=== PATIENT | male | born 1945 | race Two or more races ===

== ENCOUNTER 2021-05-05 17:34 | Inpatient (IN) | payer MEDICARE, OTHER ==
[~2021-05-05] VITALS: Ht 180.3 cm; Wt 81.6 kg
--- NOTE | 2021-05-05 17:45 | NUR ---
LAB AT BEDSIDE
--- NOTE | 2021-05-05 17:45 | NUR ---
COVID TEST COLLECTED AND TAKEN BY LAB
--- NOTE | 2021-05-05 18:11 | NUR ---
X RAY AT BEDSIDE
[2021-05-05 18:16] LABS: BASOPHILS % (AUTO) 0.5 % (0.0-2.0); EOSINOPHILS % (AUTO) 4.3 % (0.0-6.0); HEMATOCRIT 34 % (39-51); HEMOGLOBIN 10.5 g/dL (13.5-17.5); LYMPHOCYTES % (AUTO) 20.8 % (20.0-44.0); MEAN CORPUSCULAR HGB CONC 31 g/dl (31.0-36.0); MEAN CORPUSCULAR VOLUME 94 fL (80-96); MONOCYTES # (AUTO) 0.4 K/uL (0.1-1.30); MONOCYTES % (AUTO) 8.3 % (2.0-12.0); NEUTROPHILS # (AUTO) 3.1 K/uL (1.8-8.9); NEUTROPHILS % (AUTO) 66.1 % (43.0-81.0); PLATELET COUNT (AUTO) 257 K/uL (150-450); RED BLOOD CELL COUNT(AUTO) 3.58 MIL/uL (4.5-6.0); WHITE BLOOD COUNT (AUTO) 4.7 K/uL (4.3-11.0)
[2021-05-05 18:38] LABS: CARBON DIOXIDE 20 mmol/L (21-32); CHLORIDE 110 mmol/L (98-107); CREATININE 2.5 mg/dL (0.6-1.3); GLUCOSE 88 mg/dL (74-106); SODIUM SERUM 138 mmol/L (136-145); UREA NITROGEN, BLOOD 55 mg/dL (7-18)
--- NOTE | 2021-05-05 18:39 | NUR ---
CALLED DR. GROSS [phone] PAGED.
[2021-05-05 18:49] LABS: ALANINE AMINOTRANSFERASE 18 U/L (12-78); ALBUMIN 3.7 g/dL (3.4-5.0); ALKALINE PHOSPHATASE 68 U/L (46-116); ASPARTATE AMINOTRANSFERASE 16 U/L (15-37); BILIRUBIN,TOTAL 0.1 mg/dL (0.2-1.0); TOTAL PROTEIN, SERUM 7.8 g/dL (6.4-8.2)
--- NOTE | 2021-05-05 18:50 | NUR ---
MOVE SHEET SUBMITTED.
--- NOTE | 2021-05-05 19:03 | NUR ---
CALLED DR. BECKER EMILY
[2021-05-05] MEDS ORDERED: SODIUM POLYSTYRENE SULFONATE 15 G/60 ML BOTTLE ONE (19:17)
[2021-05-05] MEDS ORDERED: FUROSEMIDE 20 MG/2 ML VIAL ONE (19:17)
[2021-05-05] MEDS ORDERED: DEXTROSE 50%-WATER 50 ML DISP.SYRIN ONE (19:19)
[2021-05-05] MEDS ORDERED: SODIUM BICARBONATE SYR 50 MEQ/50 ML DISP.SYRIN ONE (19:19)
[2021-05-05] MEDS ORDERED: INSULIN REGULAR, HUMAN 100 UNIT/ML 10 ML VIAL IV ONE (19:30)
[2021-05-05] MEDS ORDERED: ALBUTEROL FS 2.5 MG/3 ML VIAL.NEB NEB ONE (19:30)
[2021-05-05] MEDS ORDERED: DEXTROSE 50%-WATER 50 ML DISP.SYRIN IV ONE (19:30)
[2021-05-05] MEDS ORDERED: FUROSEMIDE 40 MG/4 ML VIAL IV ONE (19:30)
[2021-05-05] MEDS ORDERED: SODIUM BICARBONATE SYR 50 MEQ/50 ML DISP.SYRIN IV ONE (19:30)
[2021-05-05] MEDS ORDERED: SODIUM POLYSTYRENE SULFONATE 15 G/60 ML BOTTLE PO ONE (19:30)
--- NOTE | 2021-05-05 19:38 | NUR ---
CALLED [facility] [phone] DR. SOTO SUTTON.
--- NOTE | 2021-05-05 19:48 | NUR ---
PAGED DR GROSS
[2021-05-05] MEDS ORDERED: ALBUTEROL FS 2.5 MG/3 ML VIAL.NEB ONE (20:12)
--- NOTE | 2021-05-05 20:23 | NUR ---
MRSA SWAB COLLECTED AND SENT TO LAB. PATIENT'S BELONGINGS LIST DONE.
--- NOTE | 2021-05-05 21:18 | NUR ---
REPORT GIVEN TO CHELSEY ALSTON FOR TRACY
--- NOTE | 2021-05-05 21:21 | NUR ---
AVELINO PICC NURSE WAS AT THE BEDSIDE FOR MIDLINE INSERTION. LEDON 18G. OK FOR USE PER CHELSEY YOU
--- NOTE | 2021-05-05 21:44 | NUR ---
2144 ADMITTED FROM ER 75 YEAR OLD MALE VIA GURNEY WITH DIAGNOSIS OF ACUTE RENAL FAILURE. PATIENT IS AWAKE ALERT AND ORIENTED X 4. NO C/O SOB OR ANY DISCOMFORT WHEN ASKED. VITAL SIGNS CHECKED ACCORDINGLY. O2 SATURATION 100% ON ROOM AIR. 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 SINUS JOSE CRUZ IN THE 50S. ADMISSION CARE RENDERED. SKIN ASSESSMENT DONE. ABLE TO AMBULATE TO BATHROOM WITH ASSIST. CALL LIGHT PLACED WITHIN REACH AND INSTRUCTED TO CALL FOR ASSISTANCE. PLACED ON ISOLATION PRECAUTION FOR COVID.
[2021-05-05 21:50] VITALS: BP 155/79
--- NOTE | 2021-05-05 21:52 | NUR ---
TRANSFERRED TO 102 UNDER ACLS
--- NOTE | 2021-05-05 22:00 | NUR ---
RN NOTE PT BROUGHT TO [facility] VIA GURNEY FROM ER. PT IS ON ROOM AIR SHOWING NO S/S OF RESP DISTRESS/SOB. BREATHING EVEN AND UNLABORED. PT IS A/OX4. ON TELE MONITOR SHOWING NSR. SKIN INTACT. PT IS ABLE TO AMBULATE. IV ACCESS NOTED ON LEFT WRIST #20 AND MIDLINE ON RIGHT. LINES FLUSHED, PATENT, AND INTACT WITH NO SIGNS OF INFILTRATION. ALL SAFETY MEASURES IMPLEMENTED. CALL LIGHT WITHIN REACH. BED ALARM ON. BED LOCKED AND IN LOWEST POSITION. WILL CONTINUE TO MONITOR AND ASSESS FOR ANY CHANGES DURING SHIFT.
--- NOTE | 2021-05-05 22:20 | NUR ---
[address]20 ADMISSION ORDERS OBTAINED FROM DR GROSS VIA TELEPHONE. ORDERS NOTED.
[2021-05-05] MEDS ORDERED: CLONIDINE HCL 0.1 MG TABLET PO PRN (22:30)
[2021-05-05] MEDS ORDERED: ACETAMINOPHEN 650 MG/20.3 ML UDC PO PRN (22:30)
[2021-05-05] MEDS ORDERED: ONDANSETRON HCL/PF 4 MG/2 ML VIAL IV PRN (22:30)
[2021-05-05] MEDS ORDERED: IV NS 0.9% 1,000 ML IV ONE (22:30)
[2021-05-05 23:05] LABS: DIGOXIN 0.95 ng/mL (0.90-2.00)
[2021-05-06] VITALS: BP 132/69
[2021-05-06 04:00] VITALS: BP 122/61
[2021-05-06 06:22] LABS: BASOPHILS % (AUTO) 0.2 % (0.0-2.0); EOSINOPHILS % (AUTO) 3.4 % (0.0-6.0); HEMATOCRIT 28 % (39-51); HEMOGLOBIN 9.3 g/dL (13.5-17.5); LYMPHOCYTES % (AUTO) 18.3 % (20.0-44.0); MEAN CORPUSCULAR HGB CONC 34 g/dl (31.0-36.0); MEAN CORPUSCULAR VOLUME 91 fL (80-96); MONOCYTES # (AUTO) 0.5 K/uL (0.1-1.30); NEUTROPHILS # (AUTO) 3.7 K/uL (1.8-8.9); NEUTROPHILS % (AUTO) 69.1 % (43.0-81.0); PLATELET COUNT (AUTO) 208 K/uL (150-450); RED BLOOD CELL COUNT(AUTO) 3.04 MIL/uL (4.5-6.0); WHITE BLOOD COUNT (AUTO) 5.3 K/uL (4.3-11.0)
[2021-05-06 06:59] LABS: CALCIUM, SERUM 8.4 mg/dL (8.5-10.1); CARBON DIOXIDE 22 mmol/L (21-32); CHLORIDE 110 mmol/L (98-107); CREATININE 2.3 mg/dL (0.6-1.3); GLUCOSE 82 mg/dL (74-106); POTASSIUM 4.9 mmol/L (3.5-5.1); SODIUM SERUM 141 mmol/L (136-145); UREA NITROGEN, BLOOD 46 mg/dL (7-18)
--- NOTE | 2021-05-06 07:07 | NUR ---
RN NOTE NO CHANGES IN PT CONDITION DURING SHIFT. PT IS ON ROOM AIR SHOWING NO S/S OF RESP DISTRESS/SOB. BREATHING EVEN AND UNLABORED. PT IS A/OX4. ON TELE MONITOR SHOWING NSR. SKIN INTACT. IV ACCESS NOTED ON LEFT WRIST #20 AND MIDLINE ON RIGHT. LINES FLUSHED, PATENT, AND INTACT WITH NO SIGNS OF INFILTRATION. ALL DUE MEDS GIVEN ORDERED. PT KEPT CLEAN AND COMFORTABLE. ALL SAFETY MEASURES IMPLEMENTED. CALL LIGHT WITHIN REACH. BED ALARM ON. BED LOCKED AND IN LOWEST POSITION. WILL ENDORSE TO MORNING SHIFT RN FOR TRACY.
--- NOTE | 2021-05-06 07:14 | NUR ---
RN NURSE NOTE RECEIVE REPORT FROM OUT GOING NURSE. PATIENT IN STABLE CONDITION. ON ROOM AIR AND O2 SAT 98%. A/O X4. WILL FOLLOW UP WITH AM LABS. ALL SAFETY MEASURE IN PLACE BE ON LOWEST POSITION WITH HOB ELEVATED AND 3 SIDE RAIL UP. CALL LIGHT WITHIN REACH. WILL CONTINUE TO MONITOR.
[2021-05-06 08:00] VITALS: BP 125/70
[2021-05-06] MEDS: PANTOPRAZOLE 40 MG TABLET.DR PO SCH (08:03)
[2021-05-06] MEDS ORDERED: FURO20TA4 PO (08:37)
[2021-05-06] MEDS ORDERED: APIX2.5T PO (08:37)
[2021-05-06] MEDS ORDERED: DIGO125T PO (08:37)
[2021-05-06] MEDS ORDERED: PANT40TA49 PO (08:37)
[2021-05-06] MEDS ORDERED: GABA-532 PO (08:37)
[2021-05-06] MEDS ORDERED: LOSA50TA39 PO (08:37)
[2021-05-06] MEDS ORDERED: METO50TA16 PO (08:37)
[2021-05-06] MEDS ORDERED: ENOXAPARIN SODIUM 30 MG/0.3 ML DISP.SYRIN SQ SCH (09:00)
[2021-05-06 12:00] VITALS: BP 125/70
[2021-05-06 16:00] VITALS: BP 125/78
[2021-05-06] MEDS: METOPROLOL TARTRATE 50 MG TABLET PO SCH (16:41)
[2021-05-06] MEDS: APIXABAN 2.5 MG TABLET PO SCH (16:42)
--- NOTE | 2021-05-06 18:54 | NUR ---
RN CLOSING NOTE PATIENT REMAIN IN STABLE CONDITION THROUGH OUT SHIFT. LABS IS WNL. PATIENT AMBULATE, A/O X4. SKIN INTACT. CT OF CHEST WAS DONE. ALL SAFETY MEASURE IN PLACE. BED ON LOWEST POSITION WITH HOB ELEVATED AND 3 SIDE RAIL UP. CALL LIGHT WITHIN REACH. WILL CONTINUE TO MONITOR AND GIVE REPORT TO ON COMING NURSE.
--- NOTE | 2021-05-06 19:20 | NUR ---
RN NOTE RECEIVED PT AWAKE IN BED, WATCHING TV. A/OX4, ABLE TO VERBALIZE NEEDS. DENIES ANY PAIN AT THIS TIME. RESPIRATIONS EVEN/UNLABORED. ON ROOM AIR. NO COUGH/CONGESTION NOTED AT THIS TIME. IV SITE: L-WRIST AND ELDON MIDLINE INTACT/PATENT, FLUSHES WELL. PT IN NO ACUTE DISTRESS. WILL CONT TO MONITOR.
[2021-05-06 20:00] VITALS: BP 120/70
--- NOTE | 2021-05-07 06:50 | NUR ---
RN NOTE PT RESTING IN BED, EASILY AROUSABLE TO STIMULI. A/OX4. DENIES PAIN/DISCOMFORT. DENIES SOB. AMBULATES TO BR INDEPENDENTLY WITH STEADY GAIT. NO ACUTE EVENTS DURING THE NIGHT. SAFETY MEASURES MAINTAINED. ALL NEEDS ATTENDED TO.
[2021-05-07 07:56] LABS: BASOPHILS % (AUTO) 0.5 % (0.0-2.0); HEMATOCRIT 30 % (39-51); HEMOGLOBIN 9.6 g/dL (13.5-17.5); LYMPHOCYTES # (AUTO) 1.1 K/uL (0.8-4.8); LYMPHOCYTES % (AUTO) 22.5 % (20.0-44.0); MEAN CORPUSCULAR HGB CONC 32 g/dl (31.0-36.0); MEAN CORPUSCULAR VOLUME 91 fL (80-96); MONOCYTES # (AUTO) 0.5 K/uL (0.1-1.30); MONOCYTES % (AUTO) 11.2 % (2.0-12.0); NEUTROPHILS % (AUTO) 62.8 % (43.0-81.0); PLATELET COUNT (AUTO) 209 K/uL (150-450); RED BLOOD CELL COUNT(AUTO) 3.25 MIL/uL (4.5-6.0); WHITE BLOOD COUNT (AUTO) 4.7 K/uL (4.3-11.0)
[2021-05-07 08:00] VITALS: BP 115/67
--- NOTE | 2021-05-07 08:13 | NUR ---
RN NOTES REPORT RECEIVED FROM LUIS BARBOSA AT BEDSIDE AT 07:30. PT SOUND ASLEEP WHEN RECEIVED BUT AROUSABLE. NO SOB. BREATHING UNLABORED. NO PAIN OR NEEDS AT PRESENT.
[2021-05-07] MEDS: APIXABAN 2.5 MG TABLET PO SCH (08:36)
[2021-05-07] MEDS: PANTOPRAZOLE 40 MG TABLET.DR PO SCH (08:36)
[2021-05-07] MEDS: METOPROLOL TARTRATE 50 MG TABLET PO SCH (08:37)
[2021-05-07 08:57] LABS: CALCIUM, SERUM 8.5 mg/dL (8.5-10.1); CARBON DIOXIDE 24 mmol/L (21-32); CHLORIDE 109 mmol/L (98-107); GLUCOSE 90 mg/dL (74-106); MAGNESIUM 1.8 mg/dL (1.8-2.4); POTASSIUM 4.6 mmol/L (3.5-5.1); SODIUM SERUM 141 mmol/L (136-145); UREA NITROGEN, BLOOD 39 mg/dL (7-18)
[2021-05-07] MEDS ORDERED: GABAPENTIN 100 MG CAPSULE PO SCH (09:00)
[2021-05-07] MEDS ORDERED: PANTOPRAZOLE 40 MG TABLET.DR PO SCH (09:00)
[2021-05-07] MEDS ORDERED: LOSARTAN POTASSIUM 50 MG TABLET PO SCH (09:00)
[2021-05-07 16:00] VITALS: BP 127/70
--- NOTE | 2021-05-07 16:07 | NUR ---
notified re; PCr results shows inderterminate, notified to re; results and ok to discharge today. patient stated that vaccinated x3 including booster shot
== END 2021-05-07 17:02 | DRG 683 ==
LOC: ER 17:44 → TELE1 20:56 → MEDSG1 05-06 17:45
PROVIDERS: ADMIT Legal Medicine; ATTEND Legal Medicine
DX: N17.0 Acute kidney failure with tubular necrosis (principal); I50.32 Chronic diastolic (congestive) heart failure; I48.20 Chronic atrial fibrillation, unspecified; I13.0 Hypertensive heart and chronic kidney disease with heart failure and stage 1 through stage 4 chronic kidney disease, or unspecified chronic kidney disease; E87.5 Hyperkalemia; I11.0 Hypertensive heart disease with heart failure; E78.5 Hyperlipidemia, unspecified; N18.30 Chronic kidney disease, stage 3 unspecified; K21.9 Gastro-esophageal reflux disease without esophagitis; Z86.11 Personal history of tuberculosis; D64.9 Anemia, unspecified; Z20.822 Contact with and (suspected) exposure to COVID-19; Z86.16 Personal history of COVID-19
CPT/HCPCS: 36415; 71045-TC; 71250-TC; 76770-TC; 80048-TC; 80053-TC; 80162-TC; 83735-TC; 83970; 84484-TC; 85025-TC; 87081-TC; 97116-TC; 97530-TC; C9803; G0378; J1650; J1940; J3490; J7030; U0003

== ENCOUNTER 2021-08-31 12:06 | Emergency (ER) | payer MEDICARE, OTHER ==
[~2021-08-31] VITALS: Ht 167.6 cm; Wt 83.9 kg
[~2021-08-31 12:06] MED LIST: APIX2.5T PO; DIGO125T PO; FURO20TA4 PO; GABA-532 PO; LOSA50TA39 PO; METO50TA16 PO; PANT40TA49 PO
--- NOTE | 2021-08-31 12:23 | NUR ---
MANOLO BLACK From [facility] "Left Knee Pain" Denies injury/Trauma, unable to bear weights x 6 days. presently the pain is at scale of 1/10. Placed comfortably in bed. Vitals checked.
--- NOTE | 2021-08-31 12:25 | NUR ---
Seen by Dr Brewster at bedside
[2021-08-31] MEDS ORDERED: HYDR-4182 TP (12:26)
[2021-08-31] MEDS ORDERED: FLUT16SP (12:26)
[2021-08-31] MEDS ORDERED: ACET-2605 PO (12:26)
[2021-08-31] MEDS ORDERED: KETO15CR2 TP (12:26)
--- NOTE | 2021-08-31 13:13 | NUR ---
XRAY DONE ON KNEE
--- NOTE | 2021-08-31 14:15 | NUR ---
CALLED [facility] AND SET UP S TRANSPORT ETA [id number]
--- NOTE | 2021-08-31 15:00 | NUR ---
PT BEING GENERAL INTERNAL MEDICINE PHYSICIAN BY [facility]. REPORT GIVEN TO KIERSTEN EDWARDS (UNIT#[id number]) RUN [id number].. PT WILL BE ON [facility] DURING TRANSPORT
--- NOTE | 2021-08-31 15:01 | NUR ---
Patient discharged to home in stable condition. Written and verbal after care instructions given. Patient verbalizes understanding of instruction.
[2021-08-31 15:02] VITALS: BP 115/68
== END 2021-08-31 15:03 | disposition home or self-care (01) ==
LOC: ER 12:15
DX: M25.462 Effusion, left knee (principal); I11.0 Hypertensive heart disease with heart failure; I50.9 Heart failure, unspecified; F32.A Depression, unspecified; E78.5 Hyperlipidemia, unspecified; D50.9 Iron deficiency anemia, unspecified; Z79.899 Other long term (current) drug therapy
CPT/HCPCS: 73564-TC